=== PATIENT | male | born 1990 | race Caucasian/White ===

== ENCOUNTER 2017-03-02 20:31 | Emergency (ER) | payer BC, OTHER ==
[2017-03-02] MEDS ORDERED: LIDOCAINE 1% 2 ML VIAL SUBQ STA (21:16)
[2017-03-02] MEDS ORDERED: LIDOCAINE 1% 2 ML VIAL ONE (21:25)
--- NOTE | 2017-03-02 21:32 | ED Physician Documentation ---
PD HPI UPPER EXT INJURY - Stated complaint Stated Complaint: LT FINGER INJ - Chief complaint Chief Complaint: Laceration - History obtained from History obtained from: Patient, Family - History of Present Illness Location: Left, Hand Type of injury: Laceration (knife while skinning a deer) Where injury occurred: Home Timing - onset: How many hours ago (1) Timing - duration: Hours (1) Timing - details: Abrupt onset Pain level max: 3 Pain level now: 2 Improved by: Rest Worsened by: Moving, Palpating Associated symptoms: No: Weakness, Numbness, Tingling, Swelling, Discolored - Additonal information Additional information: pt is right handed, Td UTD Review of Systems Neurologic: denies: Focal weakness, Numbness PD PAST MEDICAL HISTORY - Past Medical History Past Medical History: No Neuro: None - Past Surgical History Past Surgical History: No - Present Medications Home Medications: Ambulatory Orders Medication Instructions Recorded Confirmed No Known Home Medications [No 05/10/13 03/02/17 Known Home Medications] - Allergies Allergies/Adverse Reactions: Allergies Allergy/AdvReac Type Severity Reaction Status Date / Time No Known Drug Allergies Allergy Verified 03/02/17 20:35 - Social History Does the pt smoke?: No Smoking Status: Never smoker Does the pt drink ETOH?: Yes Does the pt have substance abuse?: No - Immunizations Immunizations are current?: Yes - POLST Patient has POLST: No PD ED PE NORMAL - Vitals Vital signs reviewed: Yes - General General: Alert and oriented X 3, No acute distress - Derm Derm: Warm and dry - Neuro Neuro: Alert and oriented X 3 - Psych Psych: Normal mood, Normal affect PD ED PE EXPANDED - Extremities DREW UE/Hands Visual: 1 - laceration (2cm, linear, subcutaneous. NVI. no tendon injury.) Results - Vitals Vitals: Vital Signs - 24 hr 03/02/17 03/02/17 20:33 21:57 Temperature 35.7 C L Heart Rate 81 82 Respiratory 18 15 Rate Blood Pressure 135/89 H 132/76 H O2 Saturation 100 99 Oxygen O2 Source Room air Procedures - Laceration (location) L hand Length in cm: 2 Wound type: Linear, Into subcut fat Neurovascular status: Sensory intact, Motor intact, Vascular intact Tendon involvement: Tendon intact. No: Tendon Injury Anesthesia: Lidocaine 1% Wound Preparation: Irrigated copiously NS Skin layer closure: Nylon, Size #-0 - enter number (4), Sutures - enter # (3) Other: Patient tolerated well, No complications, Neurovascular intact, Dressing applied, Other (td UTD) Complexity: Simple PD MEDICAL DECISION MAKING - ED course Complexity details: re-evaluated patient, considered differential, d/w patient, d/w family ED course: Patient with a laceration to the L hand. irrigated with 500ml NS. Laceration repaired. Tolerated well. NVI. No tendon injury. Warnings of infection and instructions on wound care given at bedside. Also counseled on how to minimize scarring. Patient counseled regarding signs and symptoms for which I believe and urgent re-evaluation would be necessary. Patient with good understanding of and agreement to plan and is comfortable going home at this time This document was made in part using voice recognition software. While efforts are made to proofread this document, sound alike and grammatical errors may occur. Departure - Departure Disposition: 01 Home, Self Care Clinical Impression: Laceration of hand Qualifiers: Encounter type: initial encounter Foreign body presence: without foreign body Laterality: left Qualified Code(s): S61.412A - Laceration without foreign body of left hand, initial encounter Condition: Good Instructions: ED Laceration Hand Follow-Up: your,doctor in 10 days [Other] Comments: The stitches should be removed in 10-14 days with your doctor. Return if you notice redness, swelling, or drainage from the wound. Keep the wound clean. Discharge Date/Time: 03/02/17 21:57
[2017-03-02 21:57] VITALS: BP 132/76
== END 2017-03-02 21:57 | disposition home or self-care (01) ==
LOC: ED 20:31
DX: S61.412A Laceration without foreign body of left hand, initial encounter (principal); W26.0XXA Contact with knife, initial encounter; Y93.G9 Activity, other involving cooking and grilling
CPT/HCPCS: 12001; 99282; 99283